=== PATIENT | male | born 1955 | race Two or more races ===

== ENCOUNTER 2019-08-27 01:15 | Inpatient (IN) | payer OTHER ==
[~2019-08-27] VITALS: Ht 167.6 cm; Wt 58.3 kg
[2019-08-27 02:34] LABS: BASOPHILS % (AUTO) 0.3 % (0.0-2.0); EOSINOPHILS % (AUTO) 1.3 % (1.0-6.0); LYMPHOCYTES # (AUTO) 2.9 K/uL (1.0-4.8); LYMPHOCYTES % (AUTO) 26.6 % (22.0-44.0); MEAN CORPUSCULAR HEMOGLOBIN 31.4 pg (26.0-34.0); MEAN CORPUSCULAR VOLUME 90 fL (80-100); MONOCYTES # (AUTO) 0.7 K/uL (0.1-1.0); MONOCYTES % (AUTO) 6.9 % (2.0-9.0); NEUTROPHILS % (AUTO) 64.9 % (40.0-70.0); PLATELET COUNT (AUTO) 303 K/uL (150-450); RED BLOOD CELL COUNT(AUTO) 4.79 MIL/uL (4.50-5.90); RED CELL DISTRIBUTION WIDTH 13.9 % (11.5-14.5)
[2019-08-27 02:40] LABS: APPEARANCE,URINE CLEAR (CLEAR); BILIRUBIN,URINE NEGATIVE (NEGATIVE); GLUCOSE, URINE (UA) NEGATIVE (NEGATIVE); KETONES,URINE NEGATIVE (NEGATIVE); LEUKOCYTE ESTERASE ,URINE NEGATIVE (NEGATIVE); NITRATE,URINE NEGATIVE (NEGATIVE); OCCULT BLOOD,URINE NEGATIVE (NEGATIVE); PROTEIN,URINE NEGATIVE (NEGATIVE); UROBILINOGEN,URINE 0.2 mg/dL (<=1.0)
[2019-08-27 02:43] LABS: ANION GAP 3 mmol/L (8-16); CARBON DIOXIDE 34 mmol/L (22-29); CHLORIDE 102 mmol/L (98-107); CREATININE 0.91 mg/dL (0.60-1.30); GLUCOSE,RANDOM 90 mg/dL (70-110); POTASSIUM 4.1 mmol/L (3.5-5.1); SODIUM SERUM 139 mmol/L (136-145); UREA NITROGEN, BLOOD 15 mg/dL (7-18)
[2019-08-27 02:44] LABS: CALCIUM, TOTAL 9.4 mg/dL (8.8-10.5); GLOMERULAR FILTR. RATE CALC > 60 mL/min (>60)
[2019-08-27] MEDS ORDERED: ONDANSETRON HCL 4 MG/2 ML VIAL IVP ONE (02:45)
[2019-08-27] MEDS ORDERED: PANTOPRAZOLE SODIUM 40 MG/VIAL IVP ONE (02:45)
[2019-08-27 02:46] LABS: PROTHROMBIN TIME 10.1 SEC (9.4-11.6)
[2019-08-27 02:49] LABS: ALANINE AMINOTRANSFERASE 18 U/L (12-78); ALKALINE PHOSPHATASE 120 U/L (46-116); ASPARTATE AMINOTRANSFERASE 22 U/L (15-37); BILIRUBIN,TOTAL 0.5 mg/dL (0.1-1.0); LIPASE 87 U/L (73-393); TOTAL PROTEIN, SERUM 7.5 g/dL (6.4-8.2)
[2019-08-27] MEDS ORDERED: SODIUM CHLORIDE 0.9% 100 ML ONE ×2 (03:04→03:05)
[2019-08-27] MEDS ORDERED: IOVERSOL 350 MG/ML 100 ML VIAL ONE (03:04)
[2019-08-27] MEDS ORDERED: CefTRIAXone 1 GM/DEXTROSE 50 ML IV ONE (03:45)
[2019-08-27] MEDS ORDERED: AZITHROMYCIN 500 MG/NS 250 ML IV ONE (03:45)
[2019-08-27] MEDS ORDERED: SODIUM CHLORIDE 0.9% 1,000 ML IV ONE (05:45)
[2019-08-27] MEDS ORDERED: ONDANSETRON HCL 4 MG/2 ML VIAL IVP PRN ×2 (05:45→06:30)
[2019-08-27] MEDS ORDERED: ACETAMINOPHEN 325 MG TABLET PO PRN (05:45)
[2019-08-27] MEDS ORDERED: 0.9% SODIUM CHLORIDE 10 ML SYRINGE IVP PRN ×2 (05:45→06:30)
[2019-08-27] MEDS ORDERED: IPRATROPIUM BROMIDE 0.5 MG/2.5 ML NEB SOLUTION NEB PRN (06:30)
[2019-08-27] MEDS ORDERED: MAGNESIUM OXIDE 400 MG TABLET PO PRN (06:30)
[2019-08-27] MEDS ORDERED: MAGNESIUM SULFATE 2 GM/WATER 50 ML IV PRN (06:30)
[2019-08-27] MEDS ORDERED: POTASSIUM CHL 10 MEQ/WATER 50 ML IV PRN (06:30)
[2019-08-27] MEDS ORDERED: MAGNESIUM SULFATE 4 GM/WATER 100 ML IV PRN (06:30)
[2019-08-27] MEDS ORDERED: POTASSIUM CHLORIDE 20 MEQ ER TABLET PO PRN (06:30)
[2019-08-27] MEDS ORDERED: ALBUTEROL SULFATE 2.5 MG/0.5 ML NEB SOLUTION NEB PRN (06:30)
[2019-08-27 07:30] LABS: INFLUENZA TYPE A NEGATIVE FOR TYPE A (NEGATIVE); INFLUENZA TYPE B NEGATIVE FOR TYPE B (NEGATIVE)
[2019-08-27] MEDS ORDERED: ALBUTEROL SULFATE 2.5 MG/0.5 ML NEB SOLUTION NEB SCH (08:00)
[2019-08-27] MEDS ORDERED: IPRATROPIUM BROMIDE 0.5 MG/2.5 ML NEB SOLUTION NEB SCH (08:00)
[2019-08-27] MEDS: ALBUTEROL SULFATE 2.5 MG/0.5 ML NEB SOLUTION NEB SCH ×3 (08:03→19:16)
[2019-08-27] MEDS: IPRATROPIUM BROMIDE 0.5 MG/2.5 ML NEB SOLUTION NEB SCH ×3 (08:03→19:15)
[2019-08-27 08:55] LABS: HEMATOCRIT 39.8 % (41-53)
[2019-08-27 14:29] LABS: HEMATOCRIT 44.3 % (41-53); HEMOGLOBIN 15.1 g/dL (13.5-17.5)
[2019-08-27 20:11] LABS: HEMATOCRIT 42.1 % (41-53); HEMOGLOBIN 14.4 g/dL (13.5-17.5)
[2019-08-28] MEDS: PANTOPRAZOLE SODIUM 80 MG in SODIUM CHLORIDE 0.9% 100 ML IV SCH ×3 (01:00→19:28)
[2019-08-28] MEDS ORDERED: ACETAMINOPHEN 1000 MG/ISO-OSM 100 ML IV ONE (01:00)
[2019-08-28] MEDS: ALBUTEROL SULFATE 2.5 MG/0.5 ML NEB SOLUTION NEB SCH ×4 (02:16→22:05)
[2019-08-28] MEDS: IPRATROPIUM BROMIDE 0.5 MG/2.5 ML NEB SOLUTION NEB SCH ×4 (02:16→22:04)
[2019-08-28] MEDS: CefTRIAXone 1 GM/DEXTROSE 50 ML IV SCH (05:00)
[2019-08-28 06:52] LABS: BASOPHILS % (AUTO) 0.4 % (0.0-2.0); EOSINOPHILS % (AUTO) 0.1 % (1.0-6.0); HEMATOCRIT 38.1 % (41-53); HEMOGLOBIN 13.1 g/dL (13.5-17.5); LYMPHOCYTES # (AUTO) 1.8 K/uL (1.0-4.8); LYMPHOCYTES % (AUTO) 18.8 % (22.0-44.0); MEAN CORPUSCULAR HEMOGLOBIN 30.9 pg (26.0-34.0); MEAN CORPUSCULAR HGB CONC 34.5 G/dL (31.0-37.0); MEAN CORPUSCULAR VOLUME 90 fL (80-100); MONOCYTES # (AUTO) 0.6 K/uL (0.1-1.0); MONOCYTES % (AUTO) 6.1 % (2.0-9.0); NEUTROPHILS % (AUTO) 74.6 % (40.0-70.0); PLATELET COUNT (AUTO) 279 K/uL (150-450); RED BLOOD CELL COUNT(AUTO) 4.26 MIL/uL (4.50-5.90); RED CELL DISTRIBUTION WIDTH 14.3 % (11.5-14.5)
[2019-08-28] MEDS: AZITHROMYCIN 500 MG/NS 250 ML IV SCH (06:55)
[2019-08-28 06:59] LABS: ANION GAP 9 mmol/L (8-16); CALCIUM, TOTAL 8.5 mg/dL (8.8-10.5); CARBON DIOXIDE 27 mmol/L (22-29); CHLORIDE 103 mmol/L (98-107); GLOMERULAR FILTR. RATE CALC > 60 mL/min (>60); GLUCOSE,RANDOM 119 mg/dL (70-110); SODIUM SERUM 139 mmol/L (136-145); UREA NITROGEN, BLOOD 14 mg/dL (7-18)
[2019-08-28 20:39] VITALS: BP 147/76
[2019-08-28] MEDS ORDERED: 0.9% SODIUM CHLORIDE 5 ML NEB SOLUTION NEB ONE (22:00)
[2019-08-28 23:59] VITALS: BP 119/71
[2019-08-29] MEDS: IPRATROPIUM BROMIDE 0.5 MG/2.5 ML NEB SOLUTION NEB SCH ×4 (03:20→21:00)
[2019-08-29] MEDS: ALBUTEROL SULFATE 2.5 MG/0.5 ML NEB SOLUTION NEB SCH ×4 (03:21→21:00)
[2019-08-29] MEDS ORDERED: SODIUM CHLORIDE 0.9% 100 ML ONE ×2 (05:07→11:08)
[2019-08-29 05:28] VITALS: BP 143/66
[2019-08-29] MEDS: PANTOPRAZOLE SODIUM 80 MG in SODIUM CHLORIDE 0.9% 100 ML IV SCH ×2 (05:49→15:55)
[2019-08-29] MEDS: CefTRIAXone 1 GM/DEXTROSE 50 ML IV SCH (05:50)
[2019-08-29] MEDS ORDERED: PNEUMOCOCCAL VACCINE POLYVALENT 0.5 ML VIAL [PPSV23] IM ONE (07:00)
[2019-08-29] MEDS: AZITHROMYCIN 500 MG/NS 250 ML IV SCH (07:17)
[2019-08-29 07:26] LABS: BASOPHILS % (AUTO) 0.4 % (0.0-2.0); EOSINOPHILS % (AUTO) 0.3 % (1.0-6.0); HEMATOCRIT 39.4 % (41-53); HEMOGLOBIN 13.4 g/dL (13.5-17.5); LYMPHOCYTES # (AUTO) 1.1 K/uL (1.0-4.8); LYMPHOCYTES % (AUTO) 15.7 % (22.0-44.0); MEAN CORPUSCULAR HEMOGLOBIN 30.6 pg (26.0-34.0); MEAN CORPUSCULAR VOLUME 90 fL (80-100); MONOCYTES # (AUTO) 0.5 K/uL (0.1-1.0); NEUTROPHILS # (AUTO) 5.2 K/uL (1.8-7.7); NEUTROPHILS % (AUTO) 75.6 % (40.0-70.0); PLATELET COUNT (AUTO) 275 K/uL (150-450); RED BLOOD CELL COUNT(AUTO) 4.38 MIL/uL (4.50-5.90); RED CELL DISTRIBUTION WIDTH 13.9 % (11.5-14.5)
[2019-08-29 07:42] LABS: ANION GAP 9 mmol/L (8-16); CALCIUM, TOTAL 8.9 mg/dL (8.8-10.5); CARBON DIOXIDE 27 mmol/L (22-29); CHLORIDE 104 mmol/L (98-107); CREATININE 0.98 mg/dL (0.60-1.30); GLOMERULAR FILTR. RATE CALC > 60 mL/min (>60); GLUCOSE,RANDOM 107 mg/dL (70-110); POTASSIUM 4.1 mmol/L (3.5-5.1); SODIUM SERUM 140 mmol/L (136-145); UREA NITROGEN, BLOOD 13 mg/dL (7-18)
[2019-08-29 08:04] VITALS: BP 138/69
[2019-08-29] MEDS ORDERED: MORPHINE SULFATE 2 MG/ML SYRINGE IVP PRN (10:15)
[2019-08-29] MEDS ORDERED: BARIUM SULFATE 0.1% SUSPENSION 450 ML BOTTLE ONE (11:08)
[2019-08-29] MEDS ORDERED: IOVERSOL 320 MG/ML 100 ML VIAL ONE (11:08)
[2019-08-29 12:53] VITALS: BP 130/63
[2019-08-29 16:15] VITALS: BP 125/67
[2019-08-29 19:39] VITALS: BP 156/66
[2019-08-29] MEDS ORDERED: ACETAMINOPHEN 325 MG TABLET PO PRN (22:15)
[2019-08-30] VITALS: BP 137/64
[2019-08-30] MEDS: PANTOPRAZOLE SODIUM 80 MG in SODIUM CHLORIDE 0.9% 100 ML IV SCH ×2 (01:26→10:55)
[2019-08-30] MEDS: IPRATROPIUM BROMIDE 0.5 MG/2.5 ML NEB SOLUTION NEB SCH ×4 (02:00→20:14)
[2019-08-30] MEDS: ALBUTEROL SULFATE 2.5 MG/0.5 ML NEB SOLUTION NEB SCH ×4 (02:00→20:14)
[2019-08-30 05:00] VITALS: BP 135/75
[2019-08-30] MEDS: CefTRIAXone 1 GM/DEXTROSE 50 ML IV SCH (05:21)
[2019-08-30 06:16] LABS: BASOPHILS % (AUTO) 0.6 % (0.0-2.0); EOSINOPHILS % (AUTO) 2.1 % (1.0-6.0); HEMATOCRIT 38.7 % (41-53); HEMOGLOBIN 13.3 g/dL (13.5-17.5); LYMPHOCYTES # (AUTO) 1.7 K/uL (1.0-4.8); LYMPHOCYTES % (AUTO) 28.4 % (22.0-44.0); MEAN CORPUSCULAR HEMOGLOBIN 30.9 pg (26.0-34.0); MEAN CORPUSCULAR HGB CONC 34.4 G/dL (31.0-37.0); MEAN CORPUSCULAR VOLUME 90 fL (80-100); MONOCYTES # (AUTO) 0.7 K/uL (0.1-1.0); MONOCYTES % (AUTO) 12.5 % (2.0-9.0); NEUTROPHILS # (AUTO) 3.3 K/uL (1.8-7.7); NEUTROPHILS % (AUTO) 56.4 % (40.0-70.0); PLATELET COUNT (AUTO) 273 K/uL (150-450); RED BLOOD CELL COUNT(AUTO) 4.32 MIL/uL (4.50-5.90); RED CELL DISTRIBUTION WIDTH 13.8 % (11.5-14.5)
[2019-08-30] MEDS: AZITHROMYCIN 500 MG/NS 250 ML IV SCH (06:20)
[2019-08-30 06:38] LABS: ANION GAP 9 mmol/L (8-16); CALCIUM, TOTAL 8.9 mg/dL (8.8-10.5); CARBON DIOXIDE 29 mmol/L (22-29); CHLORIDE 104 mmol/L (98-107); GLOMERULAR FILTR. RATE CALC > 60 mL/min (>60); GLUCOSE,RANDOM 79 mg/dL (70-110); POTASSIUM 4.6 mmol/L (3.5-5.1); SODIUM SERUM 142 mmol/L (136-145); UREA NITROGEN, BLOOD 13 mg/dL (7-18)
[2019-08-30 08:02] VITALS: BP 135/83
[2019-08-30] MEDS ORDERED: OMEP20 PO ×2 (10:08→16:41)
[2019-08-30] MEDS ORDERED: POLY238P2 PO (10:08)
[2019-08-30] MEDS ORDERED: SODIUM CHLORIDE 0.9% 1,000 ML ONE (10:52)
[2019-08-30] MEDS ORDERED: SODIUM CHLORIDE 0.9% 1,000 ML IV ONE (11:00)
[2019-08-30] MEDS ORDERED: PROPOFOL 1% 20 ML VIAL IVP ONE ×2 (12:00)
[2019-08-30] MEDS ORDERED: LIDOCAINE/PF 2% 5 ML SYRINGE IVP ONE (12:00)
[2019-08-30 16:15] VITALS: BP 127/72
[2019-08-30] MEDS ORDERED: POLY17PO29 PO (16:43)
[2019-08-30] MEDS ORDERED: FentaNYL CITRATE-PF 100 MCG/2 ML VIAL IVP ONE (20:44)
[2019-08-30] MEDS ORDERED: PANTOPRAZOLE SODIUM 40 MG/VIAL IVP SCH (21:00)
== END 2019-08-30 20:45 | disposition home or self-care (01) | DRG 139 ==
LOC: EMS 01:15 → 5N 08-28 18:18
PROVIDERS: ADMIT Internal Medicine; ATTEND Internal Medicine
PROC: 0D9670Z Drainage of Stomach with Drainage Device, Via Natural or Artificial Opening (ICD-10-PCS; 2019-08-28)
PROC: 0DB68ZX Excision of Stomach, Via Natural or Artificial Opening Endoscopic, Diagnostic (ICD-10-PCS; principal; 2019-08-30 13:15)
DX: J18.9 Pneumonia, unspecified organism (principal); K22.6 Gastro-esophageal laceration-hemorrhage syndrome; K29.71 Gastritis, unspecified, with bleeding; K56.609 Unspecified intestinal obstruction, unspecified as to partial versus complete obstruction; K92.0 Hematemesis; E78.5 Hyperlipidemia, unspecified; I10 Essential (primary) hypertension; K20.9 Esophagitis, unspecified; K29.70 Gastritis, unspecified, without bleeding; K44.9 Diaphragmatic hernia without obstruction or gangrene; K52.9 Noninfective gastroenteritis and colitis, unspecified; Z79.82 Long term (current) use of aspirin; Z86.73 Personal history of transient ischemic attack (TIA), and cerebral infarction without residual deficits; Z91.14 Patient's other noncompliance with medication regimen; K82.4 Cholesterolosis of gallbladder
CPT/HCPCS: 74018; 74019; 74177; 82270; 82271; 83735; 85014; 85018; 86850; 86900; 86901; 87040; 87804; 88305; 88312; 88313; 93005; 94640; 96365; 99291; C9113; J0131; J0456; J0696; J2270; J2405; J2704; J3010; J3490; J7030; J7050